=== PATIENT | male | born 1990 | race African-American/Black ===

== ENCOUNTER 2022-09-17 16:20 | Outpatient (REF) | payer MEDICAID, SELFPAY ==
--- NOTE | ~2022-09-17 | XR_ITS ---
EXAMINATION: XR KNEE, RIGHT CLINICAL INFORMATION: Knee pain for one month. COMPARISON: No recent relevant comparison TECHNIQUE: Four views of the right knee. FINDINGS: Large body habitus. Alignment is maintained at patellofemoral and tibiofemoral compartments. The joint spaces are generally well-preserved. Small marginal osteophytes are present. No knee joint effusion or intra-articular osteochondral body. XR/XR knee RT 4V IMPRESSION: * The evaluation of the right knee is partially limited by patient body habitus. * Mild tricompartmental osteoarthritis of the right knee.
== END 2022-09-17 16:21 | disposition home or self-care (01) ==
LOC: HO.HHCX 16:20
PROVIDERS: Visit Provider Student in an Organized Health Care Education/Training Program
DX: M25.561 Pain in right knee (principal)
CPT/HCPCS: 73564

== ENCOUNTER 2022-09-22 11:28 | Outpatient (REF) | payer MEDICAID, SELFPAY ==
[2022-09-22 13:12] LABS: MANUAL DIFF FLAG NO
[2022-09-22 13:45] LABS: Basophils Percent Auto 0.3 % (0-2); Eosinophils Absolute Auto 0.4 X10*3/uL (0.0-0.4); Eosinophils Percent Auto 3.2 % (0-4); Hematocrit 36.9 % (42.0-52.0); Hemoglobin 11.2 g/dl (14.0-18.0); Imm Gran Abs Auto 0.04 X10*3/uL (0.00-0.03); Imm Gran Pct Auto 0.3 % (0.0-0.4); Lymphocytes Absolute Auto 1.9 X10*3/uL (1.2-4.9); Lymphocytes Percent Auto 16.7 % (20-40); Mean Corpuscular HGB Conc 30.4 g/dl (31.0-36.0); Mean Corpuscular Hemoglobin 26.4 pg (27.0-33.0); Mean Platelet Volume 9.8 fL (9.4-12.4); Monocytes Absolute Auto 0.6 X10*3/uL (0.1-1.2); Neutrophils Absolute Auto 8.7 x10*3/uL (2.0-8.3); Neutrophils Percent Auto 74.5 % (45-73); Platelet Count 383 X10*3/uL (160-400); Red Blood Count 4.24 X10*6/uL (4.60-5.80); Red Cell Distribution Width 13.8 % (11.0-16.0); White Blood Count 11.6 X10*3/uL (4.8-10.8)
[2022-09-22 14:07] LABS: Estimated Average Glucose 120 mg/dL; Hemoglobin A1c % 5.8 %
[2022-09-22 14:24] LABS: Alanine Aminotransferase 16 U/L (0-40); Albumin Level 3.7 g/dL (3.5-5.0); Alkaline Phosphatase 135 U/L (39-117); Anion Gap 15 (12-20); Aspartate Amino Transferase 15 U/L (5-37); Bilirubin Total 0.6 mg/dL (0.0-1.0); Blood Urea Nitrogen 10 mg/dL (9-16); Calcium 9.7 mg/dL (8.4-10.2); Carbon Dioxide 21 mmol/L (22-29); Chloride 107 mmol/L (96-108); Cholesterol 126 mg/dL; Estimated Glomerular Filt Rate > 60; Glucose Random 110 mg/dL (60-115); HDL Cholesterol 40 mg/dL; Iron 59 mcg/dL (45-160); LDL Cholesterol Calculated 72 mg/dl; Magnesium 2.1 mg/dL (1.6-2.6); Percent Iron Saturation 24 % (15-50); Potassium 3.7 mmol/L (3.3-5.1); Sodium 139 mmol/L (135-145); Total Iron Binding Capacity 244 mcg/dL (228-428); Total Protein 7.6 g/dL (6.5-8.0); Triglycerides 72 mg/dL; Unsaturated Iron Binding 185 ug/dL
[2022-09-22 14:30] LABS: Ferritin 261 ng/mL (20-250); TSH reflex Free T4 2.52 uIU/mL (0.32-4.0)
[2022-09-22 14:56] LABS: Creatinine Urine 184.99 mg/dL; Microalbum/Creatinine Ratio Ur 16.7 ug/mg cr
[2022-09-22 15:09] LABS: Syphilis Screen Nonreactive (Nonreactive)
[2022-09-22 15:44] LABS: CT PCR NOT DETECTED (Not Detect.); NG PCR NOT DETECTED (Not Detect.)
[2022-09-22 21:51] LABS: Folate 4.3 ng/mL (> or = 4.0); Vitamin B12 268 pg/mL (200-900)
[2022-09-24 03:51] LABS: ~HepC Num1 0.11 S/CO (0.00-0.79); ~Hepatitis C Antibody Nonreactive (Nonreactive)
[2022-09-24 04:54] LABS: HBS Num1 3.35 mIU/mL (0-7.99); HBsAGNum1 0.32 S/CO (0.00-0.99); HIV Num 1 2.42 S/CO (0.00-0.99); Hepatitis B Core Antibody Nonreactive (Nonreactive); Hepatitis B Surface Antigen Negative (Negative); ~Hepatitis B Surface Antibody NONREACTIVE (Nonreactive)
[2022-09-24 06:06] LABS: HIV Num 2 2.28 S/CO; HIV Num 3 2.36 S/CO
[2022-09-24 06:07] LABS: HIV AB/AG Reactive (Nonreactive)
[2022-09-27 06:54] LABS: VITAMIN D (1,25 OH) D3 27 pg/mL; Vit D (1,25-Dihydroxy) Total 27 pg/mL (18-72); Vitamin D (1,25 OH) D2 <8 pg/mL
[2022-10-14 14:28] LABS: HIV 1 Antibody NEGATIVE
[2022-10-14 14:32] LABS: HIV 2 Antibody NEGATIVE
== END 2022-09-22 11:29 | disposition home or self-care (01) ==
LOC: HO.HHCL 11:28
PROVIDERS: Visit Provider Student in an Organized Health Care Education/Training Program
DX: Z00.00 Encounter for general adult medical examination without abnormal findings (principal); Z11.4 Encounter for screening for human immunodeficiency virus [HIV]; E11.69 Type 2 diabetes mellitus with other specified complication
CPT/HCPCS: 0353U; 80053; 80061; 82043; 82607; 82652; 82728; 82746; 83036; 83540; 83735; 84443; 85025; 86701; 86702; 86704; 86706; 86780; 86803; 87340; 87389

== ENCOUNTER 2022-10-10 11:15 | Outpatient (REF) | payer MEDICAID, SELFPAY ==
[2022-10-13 05:00] LABS: HIV Num 2 1.32 S/CO; HIV Num 3 1.46 S/CO
[2022-10-13 09:28] LABS: HIV Num 1 1.27 S/CO (0.00-0.99)
[2022-10-13 10:38] LABS: Absolute CD4 Count 1101 cells/uL (490-1740); Absolute CD8 Count 404 cells/uL (180-1170); Absolute Lymphocytes 2154 cells/uL (850-3900); CD4 CD8 Ratio 2.73 (0.86-5.00); Percent CD4 Cells 51 % (30-61); Percent CD8 Cells 19 % (12-42)
[2022-10-13 15:34] LABS: TS Negative Control Passed; TS Panel A 0; TS Panel B 0; TS Positive Control Passed; TSpotTB Negative (Negative)
[2022-10-14 16:44] LABS: HIV RNA PCR Qn Copies Not Detected Copies/mL; HIV RNA PCR Qn Log Copies Not Detected Log cps/mL
[2022-10-23 11:35] LABS: HIV 2 Antibody NEGATIVE
[2022-10-23 11:37] LABS: HIV 1 Antibody NEGATIVE; HIV-1 RNA TMA Qualitative NOT DETECTED
== END 2022-10-10 11:16 | disposition home or self-care (01) ==
LOC: HO.HHCL 11:15
PROVIDERS: Visit Provider Student in an Organized Health Care Education/Training Program
DX: B20 Human immunodeficiency virus [HIV] disease (principal)
CPT/HCPCS: 36415; 83735; 86360; 86481; 86701; 86702; 87389; 87536; 87900

== ENCOUNTER 2022-10-15 13:03 | Outpatient (REF) | payer MEDICAID, SELFPAY ==
--- NOTE | ~2022-10-15 | US_ITS ---
EXAMINATION: US EXTREMITY NONVASCULAR, RIGHT CLINICAL INFORMATION: Popliteal fossa pain, question Esqueda's cyst COMPARISON: None TECHNIQUE: Grayscale and color imaging of the popliteal soft tissues was performed. FINDINGS: No Esqueda's cyst. Popliteal vein is compressible without evidence of popliteal deep venous thrombosis. US/US extremity nonvascular IMPRESSION: No Esqueda's cyst.
== END 2022-10-15 13:04 | disposition home or self-care (01) ==
LOC: HO.US 13:03
PROVIDERS: PCP Student in an Organized Health Care Education/Training Program; Visit Provider Student in an Organized Health Care Education/Training Program
DX: M25.561 Pain in right knee (principal)
CPT/HCPCS: 76882

== ENCOUNTER 2022-12-03 09:15 | Outpatient (REF) | payer MEDICAID, SELFPAY ==
--- NOTE | 2022-12-03 09:19 | EMG_ITS ---
Please see scanned EMG / Nerve Conduction Report. MTDD
== END 2022-12-03 09:16 | disposition home or self-care (01) ==
LOC: HO.NEURO 09:15
PROVIDERS: PCP Student in an Organized Health Care Education/Training Program; Visit Provider Student in an Organized Health Care Education/Training Program
DX: M25.561 Pain in right knee (principal)
CPT/HCPCS: 95885; 95910

== ENCOUNTER 2023-06-09 12:37 | Outpatient (REF) | payer MEDICAID, SELFPAY ==
[2023-06-09 13:19] LABS: MANUAL DIFF FLAG NO
[2023-06-09 13:37] LABS: Basophils Absolute Auto 0.1 X10*3/uL (0.0-0.2); Basophils Percent Auto 0.4 % (0-2); Eosinophils Absolute Auto 0.2 X10*3/uL (0.0-0.4); Eosinophils Percent Auto 1.6 % (0-4); Imm Gran Abs Auto 0.07 X10*3/uL (0.00-0.03); Imm Gran Pct Auto 0.5 % (0.0-0.4); Lymphocytes Absolute Auto 2.1 X10*3/uL (1.2-4.9); Lymphocytes Percent Auto 15.6 % (20-40); Mean Corpuscular HGB Conc 31.7 g/dl (31.0-36.0); Mean Corpuscular Hemoglobin 25.2 pg (27.0-33.0); Mean Corpuscular Volume 79.6 fL (80.0-98.0); Mean Platelet Volume 9.6 fL (9.4-12.4); Monocytes Absolute Auto 0.6 X10*3/uL (0.1-1.2); Monocytes Percent Auto 4.1 % (2-11); Neutrophils Absolute Auto 10.5 x10*3/uL (2.0-8.3); Neutrophils Percent Auto 77.8 % (45-73); Platelet Count 347 X10*3/uL (160-400); Red Blood Count 5.15 X10*6/uL (4.60-5.80); Red Cell Distribution Width 13.6 % (11.0-16.0); White Blood Count 13.4 X10*3/uL (4.8-10.8)
[2023-06-09 13:44] LABS: Estimated Average Glucose 283 mg/dL; Hemoglobin A1c % 11.5 % (<6.0)
[2023-06-09 14:09] LABS: Alanine Aminotransferase 19 U/L (0-40); Albumin Level 3.8 g/dL (3.5-5.0); Alkaline Phosphatase 224 U/L (39-117); Anion Gap 13 (12-20); Aspartate Amino Transferase 13 U/L (5-37); Bilirubin Total 0.4 mg/dL (0.0-1.0); Blood Urea Nitrogen 12 mg/dL (9-16); Calcium 9.6 mg/dL (8.4-10.2); Carbon Dioxide 24 mmol/L (22-29); Chloride 102 mmol/L (96-108); Cholesterol 122 mg/dL (<200); Estimated Glomerular Filt Rate > 60; HDL Cholesterol 46 mg/dL (>40); Iron 41 mcg/dL (45-160); LDL Cholesterol Calculated 55 mg/dL (<100); Magnesium 1.9 mg/dL (1.6-2.6); Percent Iron Saturation 16 % (15-50); Sodium 135 mmol/L (135-145); Total Iron Binding Capacity 251 mcg/dL (228-428); Total Protein 8.1 g/dL (6.5-8.0); Triglycerides 109 mg/dL (<150); Unsaturated Iron Binding 210 ug/dL
[2023-06-09 14:11] LABS: Glucose Random 382 mg/dL (60-115)
[2023-06-09 14:20] LABS: Ferritin 289 ng/mL (20-250)
[2023-06-09 14:33] LABS: Vitamin B12 316 pg/mL (200-900)
[2023-06-09 17:58] LABS: Creatinine Urine 113.24 mg/dL; Microalbum/Creatinine Ratio Ur 34.4 ug/mg cr (<30)
[2023-06-11 17:28] LABS: HIV RNA PCR Qn Copies NOT DETECTED copies/mL (NOT DETECTED); HIV RNA PCR Qn Log Copies NOT DETECTED (NOT DETECTED)
== END 2023-06-09 12:38 | disposition home or self-care (01) ==
LOC: HO.HHCL 12:37
PROVIDERS: Visit Provider Student in an Organized Health Care Education/Training Program
DX: Z11.4 Encounter for screening for human immunodeficiency virus [HIV] (principal); E11.9 Type 2 diabetes mellitus without complications
CPT/HCPCS: 36415; 80053; 80061; 82043; 82570; 82607; 82728; 83036; 83540; 83735; 85025; 87536

== ENCOUNTER 2024-03-02 09:06 | Outpatient (REF) | payer MEDICAID, SELFPAY ==
--- OUTSIDE RECORDS SUMMARY | 2024-03-03 09:18 | XMS_ITS | Continuity of Care Document ---
Author Organization Counts Include [facility] vices Address [address] [place] [address] Phone Care Team Providers Care Rescue Boat Operator Name Role Phone Unavailable Unavailable Unavailable Procedures Procedure Date FOCUSED OUT/PT FOCUSED OUT/PT FOCUSED OUT/PT REMOVAL NAIL COMPLETE FOCUSED OUT/PT DRAIN SKIN ABSCESS, SIMP FOCUSED OUT/PT FOCUSED OUT/PT FOCUSED OUT/PT DRAIN SKIN ABSCESS, SIMP FOCUSED OUT/PT FOCUSED OUT/PT DEBRIDE NAIL, 1-5 EST EXPANDED PREV EST - INFLUENZA VACCINE, 3 YR CHICKEN POX (VARICELLA) IMMUNIZATION ADMINISTRAT IMMUNIZATION ADMIN EACH EST EXPANDED Advance Directives Directive Yes / No Effective Date File Name No Information Encounters Encounter Description Practice Location Reason(s) For Visit Diagnoses Date Provider Providers Copied on Encounter FOCUSED OUT/PT [facility], [address] [place] [address], [address], tel:[phone] [facility] Podiatry No Information 6-200 8 No Information FOCUSED OUT/PT [facility], [address] [place] [address], [address], tel:[phone] [facility] Podiatry No Information 0 8-200 8 No Information FOCUSED OUT/PT [facility], [address] [place] [address], [facility], tel:[phone] [facility] Podiatry No Information July-0 1-200 8 No Information FOCUSED OUT/PT [facility], [place], [address], [place] tel:[phone] [facility] Podiatry No Information Jun-0 8-200 8 No Information [facility], [place], [address], [place] tel:[phone] Conversion ONYCHIA AND PARONYCHIA OF TOE Apr-0 8-200 8 No Information FOCUSED OUT/PT [facility], [address] [place], [address], [place] tel:[phone] [facility] Podiatry No Information Fe-2 5-200 8 No Information FOCUSED OUT/PT [facility], [place], [address], [place] tel:[phone] [facility] Podiatry No Information Apr-1 8200 8 No Information FOCUSED OUT/PT [facility], [address] [place] [address], [address], [place] tel:[phone] [facility] Podiatry No Information Raúl-0 8200 8 No Information FOCUSED OUT/PT [facility], [address] [place] [address], [address], [place] tel:[phone] [facility] Podiatry No Information Dec-2 0-200 7 No Information [facility], [address] [place] [address], [address], [place] tel:[phone] Conversion INGROWING NAIL Dec-2 0-200 7 No Information FOCUSED OUT/PT [facility], [address] [place] [address], [address], [place] tel:[phone] [facility] Podiatry No Information Sep-1 9-200 7 No Information [facility], [address] [place] [address], [address], [place] tel:[phone] Conversion DERMATOPHYTOS IS OF NAIL Sep-1 9-200 7 No Information [facility], [address] [place] [address], [address], [place] tel:[phone] Conversion DERMATOPHYTOS IS OF FOOT Mike-0 4-200 7 No Information EST EXPANDED [facility], [address] [place], [address], [place] tel:[phone] [facility] Pediatrics No Information Mike-0 4-200 7 No Information PREV EST 12-17 [facility], [place], [place], [facility], [place] tel:[phone] [facility] Pediatric[facility] No Information Mar-0 5-200 7 No Information [facility], [address] [place] [address], [facility], [place] tel:[phone] Conversion MUMPS WITHOUT COMPLICATION Mar-0 5-200 7 No Information EST [facility], [address] [place] [address], [facility], [place] tel:[phone] [facility] Pediatrics No Information Feb-0 7-200 7 No Information [facility], [address] [place] [address], [facility], [place] tel:[phone] Historic Immunization Location No Information Feb-0 7-200 7 No Information [facility], [address] [place] [address], [facility], [place] tel:[phone] Conversion OBESITY UNSPECIFIEDFL U SHOTASTHMA UNSPECIFIED Feb-0 7-200 7 No Information Family History Family Member Type Diagnosis Age At Onset No Information Immunizations Vaccine Date Status Comments INFLUENZA VACCINE, 3 YR administered Sour ce: New Immunization Record IMMUNIZATION ADMINISTRAT administered Tahira rce: New Immunization Record IMMUNIZATION ADMIN EACH administered Sour ce: New Immunization Record CHICKEN POX (VARICELLA) administered Sour ce: New Immunization Record Payers Payer name Insurance type Covered constitution party ID Authoriza tion(s) No Information Social History Type Description Quantity Date Captured Comments Sex Male Smoking Status No Information Chief Complaint And Reason For Visit No Information Reason For Referral Reason For Referral No Information History Of Present Illness Encounter Date Complaint History Of Prese nt Illness No Information Functional Status Date Functional Assessmen t No Information Instructions Date Instruction Additional Infor mation No Information Assessments Type Assessment Date No Information Patient Care Teams Name Effective Dates (start - stop) Status Members No Information
== END 2024-03-02 09:07 | disposition home or self-care (01) ==
LOC: HO.HOSX 09:06
PROVIDERS: Visit Provider Orthopaedic Surgery
DX: Z13.89 Encounter for screening for other disorder (principal)

== ENCOUNTER 2024-09-27 09:10 | Outpatient (REF) | payer MEDICAID, SELFPAY ==
--- OUTSIDE RECORDS SUMMARY | 2024-09-27 09:33 | XMS_ITS | Clinical Summary ---
Author Organization [facility] Address [address] [place] [address] Care Team Providers Care Customer Sales Service Manager Name Role Phone Afshan Villalta Primary Care Provider [phone] Allergies Active Allergy Reactions Criticality Noted Date Comments Shellfish Derived Anaphylaxis High 08/10/2022 Medications docusate sodium (COLACE) 100 mg capsule Take 100 mg by mouth 2 times a day. Active insulin lispro protamine-insul in lispro (HumaLOG 75/25 - 100 units/mL) 100 units/mL injection Inject 0-10 Units under the skin 2 times a day with meals. Sliding scale: <200 is 0 units, 200-250 is 2 units, 251-300 is 4 units, 301 to 350 is 6 units, 351 to 400 is 8 units, >400 is 10 units Active nystatin 100,000 unit/gram cream Apply 1 application. topically to the affected area 2 times a day. Active polyethylene glycol 3350 (MIRALAX) 17 gram packet Take 17 g by mouth once a day. Mix powder in 4 to 8 oz of water, juice, coffee, or tea prior to administration . Active traZODone (DESYREL) 50 mg tablet Take 25 mg by mouth nightly as needed for sleep. Active gabapentin (NEURONTIN) 100 mg capsule Take 4 capsules (400 mg total) by mouth 3 times a day. 3 Active metoprolol tartrate (LOPRESSOR) 25 mg tablet Take 1 tablet (25 mg total) by mouth every 12 hours. 3 Active rivaroxaban (XARELTO) 20 mg tablet Take 1 tablet (20 mg total) by mouth once a day. 3 Active melatonin 3 mg tablet Take 2 tablets (6 mg total) by mouth nightly as needed for sleep. 3 Active Active Problems Problem Noted Date Diagnosed Date Severe obesity 08/10/2022 08/10/2022 T2DM (type 2 diabetes mellitus) 08/10/2022 Assessment & Plan (08/13/2022 9:44 PM EDT): Appears to be new from his recent hospitalization. Prior to this he had not seen a doctor in 13 years. Outpatient regimen includes glargine 5 units daily plus sliding scale Premeal and bedtime. Per patient, his sugars have been better now that he is off prednisone. 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 Wound vac was placed 07/04, removed 08/04 prior to his discharge to [facility]. Records, he is supposed to restart wound VAC with KCl 125 upon arrival at [facility], however patient did not arrive with wound VAC at this time. Site appears clean, without erythema, without drainage. Of note, his hospitalization was complicated by ATN requiring hemodialysis x2, IV steroids. His creatinine is not baseline. -Daily dressing changes with small aqua seal/DSD every other day -Obtain records from [facility]; patient has not been on wound vac since it was removed at [facility], reports it has not been draining so has not needed it -WOCN consult -Gluteal Cleft--Cleanse with soap and water or Remedy Cleansing spray. Remedy Nourishing Skin Cream can be used to help break up Z-Guard if stuck on. Do not scrub off. Pat dry. Apply a thin layer of Z-Guard BID and PRN incontinent care. Umbilicus--Cleanse with NS. Pat dry. Apply a piece of Hydrophilic foam to the open area. Cover with a Mepilex. Change every other day. Maintain adequate off loading and avoid positioning directly on umbilicus and gluteal cleft Reposition Q2 hours while in bed and Q1 hour when up in chair to off load bony prominences. Utilize chair cushion when OOB Utilize wedge positioner(s) to assist with off loading Float heels with pillows placed lengthwise under each calf Apply moisture barrier ointments as appropriate for moisture management Pad medical devices as needed JUANJOSE (obstructive sleep apnea) 08/10/2022 Assessment & Plan (08/10/2022 6:56 PM EDT): Patient reports that he was diagnosed with JUANJOSE in his teens, has not seen a doctor in 13 years. Does not use CPAP at home. At [facility] hospitalization he had an ABG which did not indicate need for CPAP at this time. Has not needed oxygen at night. -Sleep study as outpatient Acute deep vein thrombosis (DVT) of right lower extremity 08/10/2022 Assessment & Plan (08/13/2022 9:45 PM EDT): Of note, patient reports right lateral thigh pain that appears to be neuropathic. He was started on gabapentin for this and oxycodone. X-ray and ultrasound was done prior to arrival at [facility] which was reported to be negative per chart review. He reports ongoing R leg pain so repeated ultrasound of leg, found to have R DVT which seems to be new. -Continue home gabapentin 300mg 3 times daily -Continue oxycodone 10 mg every 6 hours as needed Resolved Problems Problem Noted Date Diagnosed Date Resolved Date Paroxysmal atrial fibrillation 08/10/2022 08/14/2022 Assessment & Plan (08/13/2022 9:44 PM EDT): Home medications: Atenolol 50 mg daily New onset A-fib. EKG from 08/04/2022 from facility shows sinus rhythm with heart rate 78. On 08/10/2022, patient complained of palpitations and EKG showed A-fib with RVR up to 130. Blood pressure stable. No history of arrhythmias although patient recalls that at age 15 he had palpitations and required intervention for this. Has not seen a doctor in 13 years. -Hold home atenolol -Status post diltiazem 60mg every 6 hours -Status post cardioversion on 08/12 with successful conversion to sinus tachycardia -Xarelto 15 mg x 3 weeks followed by Xarelto 20 mg p.o. daily Family History Medical History Relation Name Comments Cardiomyopathy Neg Hx Diabetes type II Neg Hx Myocardial Infarction Neg Hx Stroke Neg Hx Social History Tobacco Use Types Packs/Day Years Used Date Smoking Tobacco: Never Smokeless Tobacco: Never Tobacco Cessation:Counseling Given: Not Answered Alcohol Use Standard Drinks/Week Comments Not Currently 0 (1 standard drink = 0.6 oz pur e alcohol) Sex and Gender Information Value Date Recorded Sex Assigned at Not on file Legal Sex Male 11:03 AM EDT Gender Identity Not on file Sexual Orientation Not on file Last Filed Vital Signs Vital Sign Reading Time Taken Comments Blood Pressure 110/72 08/14/2022 3:00 PM EDT Pulse 98 08/14/2022 3:00 PM EDT Temperature 36.6 C (97.9 F) 08/14/2022 3:00 PM EDT Respiratory Rate 20 08/14/2022 3:00 PM EDT Oxygen Saturation 97% 08/14/2022 3:00 PM EDT Inhaled Oxygen Concentration - - Weight 218.2 kg (481 lb 0.7 oz) 08/13/2022 7:00 AM EDT Height 182.9 cm (6') 08/10/2022 11:46 AM EDT Body Mass Index 65.24 08/10/2022 11:46 AM EDT Plan of Treatment Health Maintenance Due Date Last Done Comments HIV Screening 1989 Hepatitis C Screening 1989 Ophthalmology Exam 09/04/1999 Urine Microalbumin 09/04/1999 Varicella Vaccines (1 of 2 - 13+ 2-dose series) 2002 Hepatitis B Vaccines (1 of 3 - 19+ 3-dose series) 2008 Pneumococcal Vaccine: Pediat josefina (0-5 Years) and At-Risk Patients (6-50 Years) (1 of 2 - PCV) 2008 DTaP,Tdap,and Td Vaccines (1 - Tdap) 09/04/2011 Hemoglobin A1C 02/12/2023 08/12/2022 Basic Metabolic Panel 08/15/2023 08/14/2022 , 08/13/2022, 08/12/2022, Additional history exists COVID-19 Vaccine (2 2023-2 5 season) 2023 02/28/2021 Alcohol/Substance Use Screening 03/16/2024 Depression Screening and Follow-Up 03/16/2024 Social Drivers of Health Susan ual Screening 03/16/2024 Influenza Vaccine (#1) 2024 RSV Vaccine (60+ years old a nd patients) (1 - 1-dose 75+ series) 2064 Procedures * Due to [place] [employer] law, this organization might not be sharing negative HIV tests. Procedure Name Priority Date/Time Associated Diagnosis Comments BASIC METABOLIC PANEL Routine 08/14/2022 3:58 AM EDT HEMOGLOBIN A1C Routine 08/12/2022 3:58 AM EDT from Last 3 Months or Most Recently Relevant to Health Maintenance Results * Due to [place] [employer] law, this organization might not be sharing negative HIV tests. * (ABNORMAL) Basic Metabolic Panel (08/14/2022 3:58 AM EDT) NA 138 135 - 145 mmol/L 08/14/2022 5:19 AM EDT [facility] K 3.6 3.5 - 5.3 mmol/L 08/14/2022 5:19 AM EDT [facility] Cl 104 97 - 110 mmol/L 08/14/2022 5:19 AM EDT [facility] CO2 24 24 - 32 mmol/L 08/14/2022 5:19 AM EDT [facility] BUN 9 7 - 23 mg/dL 08/14/2022 5:19 AM EDT [facility] Creatinine 0.80 0.60 - 1.30 mg/dL 08/14/2022 5:19 AM EDT [facility] Glucose 116(H) 70 - 99 mg/dL 08/14/2022 5:19 AM EDT [facility] Calcium 8.5(L) 8.7 - 10.7 mg/dL 08/14/2022 5:19 AM EDT [facility] Anion Gap 10 5 - 15 08/14/2022 5:19 AM EDT [facility] eGFR >90 >=90 mL/min/1. 73m2 08/14/2022 5:19 AM EDT [facility] Comment: Estimated Glomerular Filtration Rate (GFR) calculated using the CKD-EPI refit equation. The different stages of CKD form a continuum. The stages of CKD are classified as follows : Stage 1: Normal or increased GFR (>90 mL/min/1.73 m2) Stage 2: Mild reduction in GFR (60-89 mL/min/1.73 m2) Stage 3a: Moderate reduction in GFR (45-59 mL/min/1.73 m2) Stage 3b: Moderate reduction in GFR (30-44 mL/min/1.73 m2) Stage 4: Severe reduction in GFR (15-29 mL/min/1.73 m2) Stage 5: Kidney failure (GFR < 15 mL/min/1.73 m2 or dialysis) Blood Structure of peripheral vein / Unknown Venipuncture / Unknown 08/14/2022 3:58 AM EDT 08/14/2022 4:43 AM EDT us Avel Fregoso MD LAB BLOOD ORDERABLES Final Res ult [email or web address] [address] [place] [id number], * (ABNORMAL) Hemoglobin A1c (08/12/2022 3:58 AM EDT) Hemoglobin A1C 6.0(H) <5.7 % of total Hgb 08/13/2022 5:34 AM EDT [facility] Comment: For someone without known diabetes, a hemoglobin A1c value between 5.7% and 6.4% is consistent with prediabetes and should be confirmed with a follow-up test. For someone with known diabetes, a value <7% indicates that their diabetes is well controlled. A1c targets should be individualized based on duration of diabetes, age, comorbid conditions, and other considerations. This assay result is consistent with an increased risk of diabetes. Currently, no consensus exists regarding use of hemoglobin A1c for diagnosis of diabetes for children. eAG (MG/DL) 126 mg/dL 08/13/2022 5:34 AM EDT [facility] eAG (MMOL/L) 7.0 mmol/L 08/13/2022 5:34 AM EDT [facility] Blood Structure of peripheral vein / Unknown Venipuncture / Unknown 08/12/2022 3:58 AM EDT 08/12/2022 4:[address] [facility] 08/13/2022 5:34 AM EDT [facility] Received Date:[id number] Avel Fregoso MD LAB BLOOD ORDERABLES Final Res ult [facility] [address], [place] [address], [email or web address] [facility] [address], [place] [address], from Last 3 Months or Most Recently Relevant to Health Maintenance Insurance [facility] Advance Directives * Full Code (Latest Code Status on File) Date Activated Date Inactivated Comments 08/10/2022 2:42 PM 08/14/2022 8:30 PM Care Teams Customer Sales Service Manager Relationship Specialty Start Date End Date Afshan Villalta: [phone] [facility] - General 10/15/22
--- OUTSIDE RECORDS SUMMARY | 2024-09-27 09:33 | XMS_ITS | Clinical Summary ---
Author Organization [facility] Facility Address [address] [place] [id number] Care Team Providers Care Reforestation Worker Name Role Phone Albert Gupta MD Primary Care Provider Un available Allergies No known active allergies Medications acetaminophen (TYLENOL) 325 MG tablet Take 650 mg by mouth every 6 (six) hours if needed for mild pain Active amLODIPine (NORVASC) 10 MG tablet Take 10 mg by mouth 1 (one) time each day Active atenolol (TENORMIN) 50 MG tablet Take 50 mg by mouth 1 (one) time each day Active docusate sodium (COLACE) 100 MG capsule Take 100 mg by mouth in the morning and 100 mg in the evening. Active insulin glargine (LANTUS) 100 UNIT/ML injection Inject under the skin every night Active Insulin Lispro 100 UNIT/ML solution Inject as directed Active oxyCODONE (OXY-IR) 5 MG immediate release capsule Take 5 mg by mouth every 4 (four) hours if needed for moderate pain Active polyethylene glycol (GLYCOLAX) 17 g packet Take 17 g by mouth 1 (one) time each day Active Social History Tobacco Use Types Packs/Day Years Used Date Smoking Tobacco: Never Assessed Sex and Gender Information Value Date Recorded Sex Assigned at Not on file Legal Sex Male 11:39 AM EDT Gender Identity Not on file Sexual Orientation Not on file Plan of Treatment Health Maintenance Due Date Last Done Comments Hepatitis B Vaccine (1 of 3 - 19+ 3-dose series) 09/03 Pneumococcal Vaccine: Peds ( 0 to 5 Years) and At-Risk Patients (6 to 49 Years) (1 of 2 - PCV) 2008 Influenza Vaccine (#1) 2024 [place] Care Teams Reforestation Worker Relationship Specialty Start Date End Date Albert Gupta MD PCP - General Nephrology 11/25/22
[2024-09-27 11:26] LABS: Hematocrit 45.1 % (42.0-52.0); Hemoglobin 13.7 g/dl (14.0-18.0); Mean Corpuscular HGB Conc 30.4 g/dl (31.0-36.0); Mean Corpuscular Hemoglobin 24.3 pg (27.0-33.0); Mean Corpuscular Volume 80.1 fL (80.0-98.0); NRBC Abs Auto 0.000 X10*3/uL (0.0-0.012); NRBC Pct Auto 0.0 /100WBC (0.0-0.2); Platelet Count 380 X10*3/uL (160-400); Red Blood Count 5.63 X10*6/uL (4.60-5.80); White Blood Count 12.4 X10*3/uL (4.8-10.8)
[2024-09-27 11:33] LABS: Hemoglobin A1C 259.1063 umol/L; Total Hemoglobin (HGBA1C) 3669.2045 umol/L
[2024-09-27 12:10] LABS: Alanine Aminotransferase 17 U/L (0-40); Albumin Level 4.2 g/dL (3.5-5.0); Alkaline Phosphatase 192 U/L (39-117); Anion Gap 14 (12-20); Aspartate Amino Transferase 17 U/L (5-37); Blood Urea Nitrogen 12 mg/dL (9-16); Calcium 9.4 mg/dL (8.4-10.2); Carbon Dioxide 20 mmol/L (22-29); Chloride 108 mmol/L (96-108); Cholesterol 121 mg/dL (<200); Estimated Glomerular Filt Rate > 60; HDL Cholesterol 48 mg/dL (>40); Iron 66 mcg/dL (45-160); Percent Iron Saturation 27 % (15-50); Potassium 4.0 mmol/L (3.3-5.1); Sodium 138 mmol/L (135-145); Total Iron Binding Capacity 244 mcg/dL (228-428); Total Protein 8.2 g/dL (6.5-8.0); Triglycerides 89 mg/dL (<150); Unsaturated Iron Binding 178 ug/dL
[2024-09-27 12:14] LABS: Syphilis Screen Nonreactive (Nonreactive)
[2024-09-27 12:16] LABS: HBS Num1 11.07 mIU/mL (0-7.99); HBc Num1 0.08 S/CO (0.00-0.79); HBsAGNum1 0.27 S/CO (0.00-0.99); Hepatitis B Surface Antigen Negative (Negative); ~HepC Num1 0.17 S/CO (0.00-0.79); ~Hepatitis C Antibody Nonreactive (Nonreactive)
[2024-09-27 12:33] LABS: Ferritin 271 ng/mL (20-250)
[2024-09-27 12:34] LABS: Folate 6.8 ng/mL (> or = 4.0); Vitamin B12 324 pg/mL (200-900)
[2024-09-27 13:39] LABS: HBS Num2 11.47 mIU/mL (0-7.99); HBS Num3 10.92 mIU/mL (0-7.99); ~Hepatitis B Surface Antibody GRAYZONE (Nonreactive)
[2024-09-29 09:33] LABS: Rubeola IgG (Measles) >300.00 AU/mL
[2024-09-29 14:48] LABS: HIV RNA PCR Qn Copies NOT DETECTED copies/mL (NOT DETECTED); HIV RNA PCR Qn Log Copies NOT DETECTED (NOT DETECTED)
== END 2024-09-27 09:11 | disposition home or self-care (01) ==
LOC: HO.HHCL 09:10
PROVIDERS: PCP Student in an Organized Health Care Education/Training Program; Visit Provider Student in an Organized Health Care Education/Training Program
DX: Z00.00 Encounter for general adult medical examination without abnormal findings (principal)
CPT/HCPCS: 36415; 80053; 80061; 82306; 82607; 82728; 82746; 83036; 83540; 84443; 85027; 86704; 86706; 86735; 86762; 86765; 86780; 86803; 87340; 87536

== ENCOUNTER 2024-10-07 18:24 | Outpatient (REF) | payer MEDICAID, SELFPAY ==
[2024-10-07 18:42] LABS: Microalbum/Creatinine Ratio Ur 152.5 ug/mg cr (<30)
[2024-10-08 12:13] LABS: CT PCR Urine NOT DETECTED (Not Detect.); NG PCR Urine NOT DETECTED (Not Detect.)
== END 2024-10-07 18:25 | disposition home or self-care (01) ==
LOC: HO.HHCLNP 18:24
PROVIDERS: Visit Provider Student in an Organized Health Care Education/Training Program
DX: Z00.00 Encounter for general adult medical examination without abnormal findings (principal)
CPT/HCPCS: 36415; 82043; 82570; 87491; 87591